=== PATIENT | male | born 1980 | race Caucasian/White ===

== ENCOUNTER 2020-05-06 00:02 | Emergency (ER) | payer OTHER ==
[~2020-05-06] VITALS: Ht 190.5 cm; Wt 115.0 kg
--- NOTE | 2020-05-06 00:11 | NUR ---
Roscoe joshua in ED - 05/06/20 at 0012 by HAYDER TOP LOADER: PT NON-COMPLIANT WITH TEMP OR BP SECONDARY TO CHEST PAIN
--- NOTE | 2020-05-06 00:12 | NUR ---
BATCH ANALYST: PT NON-COMPLIANT WITH TEMP OR BP SECONDARY TO CHEST PAIN
[2020-05-06] MEDS ORDERED: ONDANSETRON 2MG/ML, 2ML ONE (00:22)
[2020-05-06] MEDS ORDERED: MORPHINE SULFATE 4 MG/ML, 1ML ONE ×3 (00:23→03:53)
[2020-05-06] MEDS ORDERED: ONDANSETRON 2MG/ML, 2ML IVPush ONE (00:30)
[2020-05-06] MEDS ORDERED: SODIUM CHLORIDE FLUSH 10ML SYR IVF ONE ×2 (00:30→01:30)
[2020-05-06] MEDS: MORPHINE SULFATE 4 MG/ML, 1ML IVPush PRN ×2 (00:34→00:53)
--- NOTE | 2020-05-06 00:36 | NUR ---
PT UP FROM GURNEY TO WHEELCHAIR FOR XRAY. PT TO IMAGING NOW.
--- NOTE | 2020-05-06 01:05 | NUR ---
PT BACK FROM XRAY AND IS CRYING OUT IN PAIN. PT REMEDICATED FOR PAIN AND IS NOW SLEEPING. VSS. CALL LIGHT IN REACH
[2020-05-06 01:44] LABS: BASOPHILS % (AUTO) 1 % (0-1); EOSINOPHILS % (AUTO) 0 % (1-7); LYMPHOCYTES % (AUTO) 7 % (22-44); MEAN CORPUSCULAR HEMOGLOBIN 32.7 pg (27.5-34.5); MEAN CORPUSCULAR HGB CONC 33.7 g/dL (33.2-36.2); MEAN PLATELET VOLUME 8.9 fL (7.4-10.4); MONOCYTES % (AUTO) 6 % (2-9); NEUTROPHILS % (AUTO) 86 % (42-75); PLATELET COUNT 346 x10^3/uL (130-400); RED BLOOD COUNT 4.93 x10^6/uL (4.38-5.82); RED CELL DISTRIBUTION WIDTH 13.4 % (9.4-14.8)
[2020-05-06 01:53] LABS: ALANINE AMINOTRANSFERASE 25 U/L (12-78); ANION GAP 7 mmol/L (5-15); CALCIUM 8.9 mg/dL (8.5-10.1); CHLORIDE 108 mmol/L (98-107); CREATININE 0.95 mg/dL (0.7-1.3)
[2020-05-06 01:55] LABS: ALKALINE PHOSPHATASE 49 U/L (45-117); BILIRUBIN,TOTAL 0.4 mg/dL (0.2-1.0); TOTAL PROTEIN 7.2 g/dL (6.4-8.2)
[2020-05-06 02:08] LABS: MD SCAN
--- NOTE | 2020-05-06 02:11 | NUR ---
PT TO CT
--- NOTE | 2020-05-06 02:51 | NUR ---
PT SLEEPING AND AROUSES TO VOICE. STILL COMPLAINING OF PAIN WITH MOVEMENT BUT IMPROVED AFTER PAIN MEDS. WAITING FOR CT RESULTS. CALL LIGHT IN REACH
[2020-05-06] MEDS ORDERED: SODIUM CHLORIDE 0.9% 1,000ML IVBOLUS ONE (04:00)
[2020-05-06] MEDS ORDERED: MORPHINE SULFATE 4 MG/ML, 1ML IVPush ONE (04:00)
--- NOTE | 2020-05-06 04:00 | NUR ---
PT REMEDICATED FOR PAIN. FLUIDS RUNNING. FAMILY AT BEDSIDE
[2020-05-06 04:30] VITALS: BP 122/67
--- NOTE | 2020-05-06 04:30 | NUR ---
PT TO BE TRANSFERRED TO [facility]. REPORT CALLED TO HOUSE PAINTER AT [facility]
[2020-05-06] MEDS ORDERED: OMNIPAQUE 350 MG/ML, 100ML BOTTLE ONE (05:14)
== END 2020-05-06 04:54 | disposition other institution (70) ==
LOC: ED 00:54
DX: S22.41XA Multiple fractures of ribs, right side, initial encounter for closed fracture (principal); S42.021A Displaced fracture of shaft of right clavicle, initial encounter for closed fracture; S20.211A Contusion of right front wall of thorax, initial encounter; S27.321A Contusion of lung, unilateral, initial encounter; G89.11 Acute pain due to trauma; R07.89 Other chest pain; V27.0XXA Motorcycle driver injured in collision with fixed or stationary object in nontraffic accident, initial encounter; Y93.89 Activity, other specified; Y92.89 Other specified places as the place of occurrence of the external cause; Y99.8 Other external cause status
CPT/HCPCS: 36415; 71101; 71260; 74177; 80053; 85025; 93005; 96361; 96374; 96375; 96376; 99285; J2270; J2405; J7030; Q9967; 99291